=== PATIENT | female | born 1945 ===

== ENCOUNTER 2017-09-01 12:41 | Outpatient (CLI) | payer MEDICARE, BC ==
--- NOTE | 2017-09-01 16:28 | Diagnostic Imaging Report ---
Indication: COUGH Technique: Two views of the chest Comparison: none Findings: The heart is borderline enlarged. Lungs and pleural spaces are clear. Impression: No acute process
== END 2017-09-01 14:41 | disposition home or self-care (01) ==
LOC: RAD 12:41
DX: R05 Cough (principal)
CPT/HCPCS: 71020